=== PATIENT | male | born 1960 | race Caucasian/White ===

== ENCOUNTER 2017-09-27 06:07 | Emergency (ER) | END 2017-09-27 06:54 | disposition home or self-care (01) ==

== ENCOUNTER 2017-10-04 04:57 | Emergency (ER) | END 2017-10-04 05:20 | disposition home or self-care (01) ==

== ENCOUNTER 2018-07-07 11:24 | Emergency (ER) | END 2018-07-07 16:32 | disposition home or self-care (01) ==

== ENCOUNTER 2018-07-08 07:08 | Emergency (ER) | payer OTHER ==
[~2018-07-08] VITALS: Ht 175.3 cm; Wt 70.1 kg
[~2018-07-08 07:08] MED LIST: CEPH-443 PO; IBUP-1542 PO; SULF1TAB31 PO
[2018-07-08 07:10] VITALS: BP 146/78; PULSE 77; RESP 20; Ht 175.3 cm; Wt 70.1 kg
--- NOTE | 2018-07-08 07:57 | ERD ---
ER Documentation Chief Complaint Chief Complaint Recheck left hand swelling/abscess HPI Patient is a 57-year-old male who presents the ER for concerns of wound recheck to his left hand. Patient was seen by myself yesterday. Patient was noted to have an abscess and cellulitis on his left hand after he was moving an old couch in his backyard and believed he got poked by a thorn. No foreign bodies were noted on CT imaging. Patient was discharged home with a prescription of Keflex and Bactrim however patient did not fill these antibiotics. Patient has not taken any medications since leaving yesterday. Patient denies any worsening redness or swelling past the marked borders which were placed yesterday. Patient denies any fevers or chills. Patient is right-hand dominant. Patient was given his tetanus vaccination yesterday. Patient works in construction. ROS All systems reviewed and are negative except as per history of present illness. Medications Home Meds Active Scripts Ibuprofen* (Motrin*) 600 Mg Tab, 600 MG PO Q6, #30 TAB Prov:RENATA POLANCO-Denis 07/07/18 Sulfamethoxazole/Trimethoprim* (Bactrim Ds* Tablet) 1 Each Tablet, 1 TAB PO BID, #14 TAB Prov:ERNATA POLANCO-C 07/07/18 Cephalexin* (Keflex*) 500 Mg Capsule, 500 MG PO TID for 7 Days, CAP Prov:RENATA POLANCO-C 07/07/18 Sulfamethoxazole/Trimethoprim* (Bactrim Ds* Tablet) 1 Each Tablet, 1 TAB PO BID, #14 TAB Prov:MAX MONTEZ MD 09/27/17 Cephalexin* (Keflex*) 500 Mg Capsule, 500 MG PO QID for 7 Days, CAP Prov:MAX MONTEZ MD 09/27/17 Allergies Allergies: Coded Allergies: No Known Drug Allergies (Verified Allergy, Unknown, 09/27/17) PMhx/Soc Medical and Surgical Hx: pt denies Medical Hx, pt denies Surgical Hx Hx Alcohol Use: No Hx Substance Use: No Hx Tobacco Use: Yes Smoking Status: Current every day smoker FmHx Family History: No diabetes Physical Exam Vitals Vital Signs Date Temp Pulse Resp B/P (MAP) Pulse Ox O2 O2 Flow FiO2 Time Delivery Rate 07/08/18 97.0 77 20 146/78 99 07:10 (100) Physical Exam GENERAL: Well-developed, well-nourished male. Appears in no acute distress. HEAD: Normocephalic, atraumatic. EYES: Pupils are equally reactive bilaterally. EOMs grossly intact. No conjunctival erythema. ENT: Moist mucous membranes. No uvula deviation. No kissing tonsils. LUNG: No respiratory distress EXTREMITIES: Equal pulses bilaterally. No peripheral clubbing, cyanosis or edema. No unilateral leg swelling. NEUROLOGIC: Alert and oriented. Moving all four extremities without any difficulty. Normal speech. Steady gait. SKIN: Left hand: Significant swelling noted throughout the palm and in the second digit. Patient able to bend at PIP, DIP and MCP joints of second digit however restriction is noted secondary to swelling. Finger is not held in a flexed position. Patient has no pain with passive extension. Tendon sheath is nontender to palpation. Small pinpoint noted at the MCP joint of the second digit with minimal active drainage. Normal pulses. Normal cap refill. Sensation is intact to light touch. Normal range of motion of wrist. Results 24 hrs Current Medications Medications Dose Sig/Rasta Start Time Status Last (Trade) Ordered Route PRN Stop Time Admin Dose Reason Admin 1 tab ONCE ONCE 07/08/18 07/08/18 Trimethoprim/ PO 08:00 07:39 07/08/18 Sulfamethoxaz 08:01 ole (Bactrim (Ds)) Cephalexin 500 mg ONCE ONCE 07/08/18 07/08/18 (Keflex) PO 08:00 07:39 07/08/18 08:01 Procedures/MDM MEDICAL DECISION MAKING: This is a 57-year-old male who presents the ER for concerns of a wound check to his left hand. Patient was seen here yesterday. Since leaving yesterday patient did not fill his antibiotics. Patient has not taking any antibiotics. Fevers. Vital signs were reviewed. Patient is afebrile today. Patient was not tachycardic. Patient's redness and swelling does not appear to have spread past the marked borders. Patient denies any significant worsening pain. I discussed case with my supervising physician Dr. Mayberry, who also examined the patient and spoke with him at length. Dr. Mayberry reviewed the patient's chart from yesterday. Together we discussed the importance of medication compliance. The risks of noncompliance including loss of extremity was discussed with the patient. Patient was given information for a pharmacy which is open at this time. Patient was advised to go to the pharmacy immediately to those prescriptions. Patient was advised on strict ER precautions. Patient was advised to return here if he has any new or worsening redness, swelling, pain, fevers, chills. Patient was advised to return tomorrow morning for recheck. At this time, the patient's presentation is most consistent with an abscess to his left hand. Low suspicion for sepsis, osteomyelitis, new fracture, dislocation, retained foreign body, flexor tenosynovitis. Patient was nontoxic, non-ill appearing prior to discharge. PRESCRIPTIONS: Patient has prescription of Keflex, Bactrim and his physician. Patient advised to fill these prescriptions were given to him yesterday. DISCHARGE: At this time, the patient is stable for discharge and outpatient management. Wound recheck advised in 1 day.. I have instructed the patient to promptly return to the ER for any new or worsening symptoms including increasing pain, fever, warmth, redness or swelling. The patient and/or family expressed understanding of and agreement with this plan. All questions were answered. Home care instructions were provided. Disclaimer: Inadvertent spelling and grammatical errors are likely due to EHR/dictation software use and do not reflect on the overall quality of patient care. Also, please note that the electronic time recorded on this note does not necessarily reflect the actual time of the patient encounter. Departure Diagnosis: Primary Impression: Encounter for wound re-check Additional Impressions: Abscess Cellulitis Site of cellulitis: unspecified site Qualified Codes: L03.90 - Cellulitis, unspecified Condition: Fair Patient Instructions: Abscess, Antiobiotic Treatment Only Referrals: [facility] YOU HAVE RECEIVED A MEDICAL SCREENING EXAM AND THE RESULTS INDICATE THAT YOU DO NOT HAVE A CONDITION THAT REQUIRES URGENT TREATMENT IN THE EMERGENCY DEPARTMENT. FURTHER EVALUATION AND TREATMENT OF YOUR CONDITION CAN WAIT UNTIL YOU ARE SEEN IN YOUR DOCTORS OFFICE WITHIN THE NEXT 1-2 DAYS. IT IS YOUR RESPONSIBILITY TO MAKE AN APPOINTMENT FOR FOLOW-UP CARE. IF YOU HAVE A PRIMARY DOCTOR --you should call your primary doctor and schedule an appointment IF YOU DO NOT HAVE A PRIMARY DOCTOR YOU CAN CALL OUR PHYSICIAN REFERRAL HOTLINE AT IF YOU CAN NOT AFFORD TO SEE A PHYSICIAN YOU CAN CHOSE FROM THE FOLLOWING [facility] [address] [facility] [address] [facility] [address] [facility] [address] [facility] [address] [facility]. [facility] [address] [facility]. [facility] YOU HAVE RECEIVED A MEDICAL SCREENING EXAM AND THE RESULTS INDICATE THAT YOU DO NOT HAVE A CONDITION THAT REQUIRES URGENT TREATMENT IN THE EMERGENCY DEPARTMENT. FURTHER EVALUATION AND TREATMENT OF YOUR CONDITION CAN WAIT UNTIL YOU ARE SEEN IN YOUR DOCTORS OFFICE WITHIN THE NEXT 1-2 DAYS. IT IS YOUR RESPONSIBILITY TO MAKE AN APPOINTMENT FOR FOLOW-UP CARE. IF YOU HAVE A PRIMARY DOCTOR --you should call your primary doctor and schedule and appointment IF YOU DO NOT HAVE A PRIMARY DOCTOR YOU CAN CALL OUR PHYSICIAN REFERRAL HOTLINE AT . IF YOU CAN NOT AFFORD TO SEE A PHYSICIAN YOU CAN CHOSE FROM THE FOLLOWING [facility] INSTITUTIONS: [facility] [address] [place] [address] [facility] [address] [place] [address] [facility] [address] [place] [address] [facility] Additional Instructions: Go to [facility] immediately (address given to you) upon departing here to black pickler your antibiotics. Return tomorrow morning for recheck. Return immediately for any new or worsening redness, swelling, pain, fevers or chills RENATA POLANCO PA-C Jul 08, 2018 07:57
[2018-07-08] MEDS ORDERED: TRIMETHOPRIM/SULFAMETHOX (DS) TAB PO ONE (08:00)
[2018-07-08] MEDS ORDERED: CEPHALEXIN 500 MG CAP PO ONE (08:00)
== END 2018-07-08 07:57 | disposition home or self-care (01) ==
LOC: FTE 07:08
DX: L02.512 Cutaneous abscess of left hand (principal); F17.210 Nicotine dependence, cigarettes, uncomplicated; L03.114 Cellulitis of left upper limb; Z48.01 Encounter for change or removal of surgical wound dressing
CPT/HCPCS: Z7502; Z7610; 99283

== ENCOUNTER 2018-10-30 10:04 | Emergency (ER) | payer OTHER ==
[~2018-10-30] VITALS: Ht 185.4 cm; Wt 73.0 kg
[2018-10-30 10:10] VITALS: Ht 185.4 cm; Wt 73.0 kg
[2018-10-30] MEDS ORDERED: TETRACAINE 0.5% 4 ML OPH BOTH EYES ONE (11:00)
[2018-10-30] MEDS ORDERED: AMOX1TAB9 PO (12:51)
[2018-10-30] MEDS ORDERED: MECL12.574 PO (12:51)
[2018-10-30 12:56] VITALS: BP 143/95; PULSE 67; RESP 18
--- NOTE | 2018-10-31 06:58 | ERD ---
ER Documentation Chief Complaint Chief Complaint HEARING LOSS RIGHT EAR, DIZZINESS FOR 4 DAYS, LEFT EYE REDNESS TODAY HPI This is a 58-year-old male with a past medical history of subdural hematoma several years prior to arrival after a fall. The patient presents to the emergency department today stating that he has been complaining of hearing loss of his right ear. He states that this is been present for several months but progressively worsened over the past 4 days as he started to develop dizziness. The patient also indicates for the past 4 days he has been having a ringing sensation in his right ear. He denies any recent instrumentation into the right ear. He denied any changes in vision. He is felt nauseous but has not experience any emesis. He bought a hearing aid which she states has improved his hearing on the right. He denies any chest pain. He has no shortness of breath. He denies any fever shaking or chills and no neck pain. He also indicated when he awoke this morning he felt a foreign body sensation in his left eye noticed that his left eye was red. He denies any recent trauma to his right ear or left eye. ROS All systems reviewed and are negative except as per history of present illness. Medications Home Meds Active Scripts Meclizine Hcl* (Antivert*) 12.5 Mg Tab, 12.5 MG PO Q6H PRN for DIZZINESS, #20 TAB Prov:JACINTO GUERRA MD 10/30/18 Amoxicillin/Potassium Clav (Amox-Clav 500-125 mg Tablet) 500-125 mg Tab, 1 TAB PO BID for 10 Days, TAB Prov:JACINTO GUERRA MD 10/30/18 Allergies Allergies: Coded Allergies: No Known Drug Allergies (Verified Allergy, Unknown, 10/30/18) PMhx/Soc History of Surgery: Yes (r shoulder, head, r knee ) Anesthesia Reaction: No ( ) Hx Neurological Disorder: No Hx Respiratory Disorders: No Hx Cardiac Disorders: No Hx Psychiatric Problems: No Hx Miscellaneous Medical Probl: No Hx Alcohol Use: No Hx Substance Use: No Hx Tobacco Use: No Smoking Status: Never smoker Physical Exam Vitals Vital Signs Date Temp Pulse Resp B/P (MAP) Pulse Ox O2 O2 Flow FiO2 Time Delivery Rate 10/30/18 97.8 67 18 143/95 100 Room Air 12:56 (111) 4/18/19 97.8 87 18 133/88 98 10:10 (103) Physical Exam Constitutional:Well-developed. Well-nourished. HEENT:Normocephalic. Atraumatic.Pupils were equal round reactive to light. Moist mucous membranes.No tonsillar exudates. Bulging and opaqueness of the right tympanic membrane with no edema of the right external auditory ear canal. No tenderness over the bilateral mastoids are regular tenderness bilaterally. Decreased hearing on the right compared to the left. Conjunctival injection of the left eye. Fluorescein stain negative for corneal abrasion. Lid eversion showed no foreign body. Visual acuity was 20/20 bilaterally. No tenderness with movement of the extraocular muscles bilaterally. No irregular shaped pupil of the left eye. Neck: No nuchal rigidity. No lymphadenopathy. No posterior cervical spine tenderness or step-offs. Respiratory: Not using accessory muscles of respiration.Lungs were clear to auscultation bilaterally. No rhonchi. No rales. No wheezing. Cardiovascular: Regular rate regular rhythm.No murmurs. No rubs were appreciated.S1, S2 normal. Distal pulses are palpable 2+ bilaterally. GI: Abdomen was soft. Nontender. Non Distended. No pulsatile abdominal masses or bruits. No rebound. No guarding. Bowel sounds were present and normal. Muscle skeletal: Full range of motion of both the upper and lower extremities bilaterally.Normal muscle tone.No assymetrical calf tenderness or swelling. Skin: No petechia, no purpura. No lesions on the palms or the soles of the feet. No maculopapular rash. NEURO: Patient was alert, awake, orientated x3.No facial droop. Gait observed and normal with no ataxia.Speech had regular rate and rhythm. No focal neurological deficits. Result Diagram: 10/30/18 1117 10/30/18 1117 Results 24 hrs Laboratory Tests Test 10/30/18 11:17 White Blood Count 9.2 10^3/ul Red Blood Count 4.75 10^6/ul Hemoglobin 14.1 g/dl Hematocrit 42.5 % Mean Corpuscular Volume 89.5 fl Mean Corpuscular Hemoglobin 29.7 pg Mean Corpuscular Hemoglobin Concent 33.2 g/dl Red Cell Distribution Width 13.0 % Platelet Count 316 10^3/UL Mean Platelet Volume 8.8 fl Immature Granulocytes % 0.200 % Neutrophils % 63.1 % Lymphocytes % 25.1 % Monocytes % 8.6 % Eosinophils % 2.5 % Basophils % 0.5 % Nucleated Red Blood Cells % 0.0 /100WBC Immature Granulocytes # 0.020 10^3/ul Neutrophils # 5.8 10^3/ul Lymphocytes # 2.3 10^3/ul Monocytes # 0.8 10^3/ul Eosinophils # 0.2 10^3/ul Basophils # 0.1 10^3/ul Nucleated Red Blood Cells # 0.0 10^3/ul Prothrombin Time 12.6 Sec Prothrombin Time Ratio 1.0 INR International Normalized Ratio 0.93 Activated Partial Thromboplast Time 34.7 Sec Sodium Level 139 mmol/L Potassium Level 4.0 mmol/L Chloride Level 105 mmol/L Carbon Dioxide Level 26 mmol/L Anion Gap 8 Blood Urea Nitrogen 13 mg/dl Creatinine 0.74 mg/dl Est Glomerular Filtrat Rate mL/min > 60 mL/min Glucose Level 153 mg/dl Calcium Level 9.6 mg/dl Total Bilirubin 0.0 mg/dl Direct Bilirubin 0.00 mg/dl Indirect Bilirubin 0.0 mg/dl Aspartate Amino Transf (AST/SGOT) 24 IU/L Alanine Aminotransferase (ALT/SGPT) 27 IU/L Alkaline Phosphatase 84 IU/L Troponin I < 0.012 ng/ml Total Protein 7.0 g/dl Albumin 3.9 g/dl Globulin 3.10 g/dl Albumin/Globulin Ratio 1.25 Current Medications Medications Dose Sig/Rasta Start Time Status Last (Trade) Ordered Route PRN Stop Time Admin Dose Reason Admin Tetracaine 1 drop ONCE ONCE 10/30/18 DC HCl BOTH EYES 11:00 (Tetracaine 10/30/18 11:05 0.5% Steri-Unit Belkys) Procedures/MDM This patient was seen and evaluated by myself. The patient presented to the emergency department complaining of dizziness. My differential diagnosis included but was not limited to hypovolemia, myocardial infarction, pulmonary embolism, hypoglycemia, hypoxia, anemia, vasovagal episode, hypothyroidism, anxiety, peripheral or central vertigo. The patient was placed on a ekg monitor tech, continuous pulse oximetry and IV access established by nursing staff. I obtained a 12-lead EKG tracing to rule out for atypical myocardial infarction. 12 Lead EKG tracing ordered and reviewed by myself showed: Normal sinus rhythm of 69 bpm and no arrhythmia. [place] interval normal. QRS duration normal. No ST segment elevation No ST segment depression. No changes consistent with acute ischemia. I do feel is necessary to obtain a CT scan of the patient's head to rule out for mass-effect that could be causing his symptoms. This was reviewed by the radiologist and indicated the followin. No acute intracranial abnormality. No intracranial hemorrhage, extra-axial fluid collection, mass lesion or hydrocephalous. 2. Mild peripheral and central cerebral volume loss. 3. 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 The patient had conjunctival injection of the left eye. The patient had no evidence of corneal abrasion or other acute emergent ophthalmology condition. I did indicate that this could be an allergic conjunctivitis as he was also complaining of pruritus of the left eye. There is no ptosis. I also indicated the patient I did not have an exact cause into the tinnitus and dizziness and decreased hearing loss of the patient's right ear. There is opaqueness of the right tympanic membrane. He will be given prophylactic antibiotics to prevent secondary bacterial infection of otitis media. He was given a prescription of amoxicillin. His is also present I did indicate that the patient will require follow-up with an ENT for further evaluation. They stated they will be able to get an appointment tomorrow with her primary care physician and referral to an ENT. The patient was discharged home in fair condition. They were instructed to return to the emergency department at any time if there was any worsening of their condition. The patient stated they would follow up with their PCP in the next 24-48 hours to initiate a suitable medication regimen under the care of their PCP as well as to allow their PCP to monitor any drug reactions. The patient was discharged home with prescriptions after they gave informed consent to the new medication. They were also fully informed by myself on the adverse effects and adverse drug interactions in order to provide adequate safeguards to prevent possible adverse reactions to medications. Departure Diagnosis: Primary Impression: Tinnitus, right Additional Impressions: Dizziness Allergic conjunctivitis of right eye Condition: Fair Patient Instructions: Tinnitus (Ringing in the Ears), Otitis Media, Abx Tx (Adult) JACINTO GUERRA MD Oct 31, 2018 06:58
== END 2018-10-30 14:16 | disposition home or self-care (01) ==
LOC: E/R 10:04
DX: H93.11 Tinnitus, right ear (principal); R42 Dizziness and giddiness; H10.11 Acute atopic conjunctivitis, right eye
CPT/HCPCS: 70450; 80053; 84484; 85025; 85610; 85730; 93005; Z7502; Z7610

== ENCOUNTER 2018-12-25 11:06 | Emergency (ER) | payer OTHER ==
[~2018-12-25] VITALS: Ht 185.4 cm; Wt 69.1 kg
[~2018-12-25 11:06] MED LIST changes: +AMOX1TAB9 PO; -CEPH-443 PO; -IBUP-1542 PO; +MECL12.574 PO; -SULF1TAB31 PO
[2018-12-25 11:22] VITALS: RESP 19; Ht 185.4 cm; Wt 69.1 kg
[2018-12-25] MEDS ORDERED: ONDANSETRON (ODT) 4 MG TAB ODT STA (13:01)
[2018-12-25] MEDS ORDERED: ONDA4TAB14 PO (13:02)
[2018-12-25] MEDS ORDERED: MECL12.574 PO (13:02)
--- NOTE | 2018-12-25 13:10 | ERD ---
ER Documentation Chief Complaint Chief Complaint dizziness, nausea and blurred vision x this am HPI 58-year-old male presenting with dizziness and nausea. Patient states he woke up this morning with some mild blurry vision. He states that while he is been weeding his symptoms have resolved. Patient states this happened to him about a month ago. He was given some medications that helped his symptoms. He denies any headaches. Denies any chest pain or shortness of breath. Denies fevers. Denies medical problems. NKDA. Surgical history denies. Social history denies ROS All systems reviewed and are negative except as per history of present illness. Medications Home Meds Active Scripts Ondansetron (Ondansetron Odt) 4 Mg Tab.rapdis, 4 MG PO Q6H PRN for NAUSEA AND/OR VOMITING, #10 TAB Prov:KEMAL HILL PA-C 12/25/18 Meclizine Hcl* (Antivert*) 12.5 Mg Tab, 12.5 MG PO Q6H PRN for DIZZINESS, #20 TAB Prov:KEMAL HILL PA-C 12/25/18 Meclizine Hcl* (Antivert*) 12.5 Mg Tab, 12.5 MG PO Q6H PRN for DIZZINESS, #20 TAB Prov:JACINTO GUERRA MD 10/30/18 Amoxicillin/Potassium Clav (Amox-Clav 500-125 mg Tablet) 500-125 mg Tab, 1 TAB PO BID for 10 Days, TAB Prov:JACINTO GUERRA MD 10/30/18 Allergies Allergies: Coded Allergies: No Known Drug Allergies (Verified Allergy, Unknown, 10/30/18) PMhx/Soc History of Surgery: Yes (r shoulder, head, r knee ) Anesthesia Reaction: No ( ) Hx Neurological Disorder: Yes (hx head injury 1995) Hx Respiratory Disorders: No Hx Cardiac Disorders: No Hx Psychiatric Problems: No Hx Miscellaneous Medical Probl: No Hx Alcohol Use: No Hx Substance Use: No Hx Tobacco Use: Yes (cigar) Smoking Status: Current every day smoker FmHx Family History: No diabetes, No coronary disease, No other Physical Exam Vitals Vital Signs Date Temp Pulse Resp B/P (MAP) Pulse Ox O2 O2 Flow FiO2 Time Delivery Rate 12/25/18 98.1 85 19 147/89 99 11:22 (108) Physical Exam GENERAL: The patient is well-appearing, well-nourished, in no acute distress HEENT: Atraumatic. Conjunctivae are pink. Pupils equal, round, and reactive to light. There is no scleral icterus. Tympanic membranes clear bilaterally. Oropharynx clear. CHEST: Clear to auscultation bilaterally. There are no rales, wheezes or rhonchi. HEART: Regular rate and rhythm. No murmurs, clicks, rubs or gallops. ABDOMEN:Soft, nontender and nondistended. Good bowel sounds. No rebound or guarding. No gross peritonitis. No gross organomegaly or masses. NEUROLOGIC: Alert and oriented. Cranial nerves II through XII intact. Motor strength in all 4 extremities with 5 out of 5 strength. Sensation grossly intact. Normal speech and gait. SKIN: There is no apparent rash or petechiae. The skin is warm and dry. Results 24 hrs Current Medications Medications Dose Sig/Rasta Start Time Status Last (Trade) Ordered Route PRN Stop Time Admin Dose Reason Admin Ondansetron 4 mg ONCE STAT 12/25/18 DC 12/25/18 HCl (Zofran ODT 13:01 13:05 Odt) 12/25/18 13:02 Meclizine 12.5 mg ONCE ONCE 12/25/18 12/25/18 HCl PO 13:30 13:06 (Antivert) 12/25/18 13:31 Procedures/MDM ER course: Meclizine and Zofran given in ED. MDM: 58-year-old male presenting with dizziness. Patient stated that he only wanted the medication that he pursue particularly given wants to follow-up with his primary doctor today. I have low suspicion for intracranial hemorrhage or neuro deficit. I do not feel there is indication for blood work or imaging. Patient is discharged with supportive medications and told to follow-up with primary care. All questions answered at discharge Departure Diagnosis: Primary Impression: Dizziness Condition: Stable Patient Instructions: Dizziness, Unk Cause Referrals: [facility] YOU HAVE RECEIVED A MEDICAL SCREENING EXAM AND THE RESULTS INDICATE THAT YOU DO NOT HAVE A CONDITION THAT REQUIRES URGENT TREATMENT IN THE EMERGENCY DEPARTMENT. FURTHER EVALUATION AND TREATMENT OF YOUR CONDITION CAN WAIT UNTIL YOU ARE SEEN IN YOUR DOCTORS OFFICE WITHIN THE NEXT 1-2 DAYS. IT IS YOUR RESPONSIBILITY TO MAKE AN APPOINTMENT FOR FOLOW-UP CARE. IF YOU HAVE A PRIMARY DOCTOR --you should call your primary doctor and schedule an appointment IF YOU DO NOT HAVE A PRIMARY DOCTOR YOU CAN CALL OUR PHYSICIAN REFERRAL HOTLINE AT IF YOU CAN NOT AFFORD TO SEE A PHYSICIAN YOU CAN CHOSE FROM THE FOLLOWING [facility] [address] [facility] [address] [facility] [address] [facility] [address] [facility] [address] [facility]. [facility] [address] Additional Instructions: FOLLOW UP WITH YOUR PRIMARY CARE PHYSICIAN TOMORROW.Return to this facility if you are not improving as expected. KEMAL HILL PA-C Dec 25, 2018 13:10
[2018-12-25] MEDS ORDERED: MECLIZINE 12.5 MG TAB PO ONE (13:30)
[2018-12-25 13:40] VITALS: BP 153/82; PULSE 69
== END 2018-12-25 13:40 | disposition home or self-care (01) ==
LOC: FTE 11:06
DX: R42 Dizziness and giddiness (principal); F17.210 Nicotine dependence, cigarettes, uncomplicated; R11.0 Nausea
CPT/HCPCS: Z7502; Z7610; 99283